=== PATIENT | female | born 1995 | race African-American/Black ===

== ENCOUNTER 2016-10-25 16:09 | Emergency (ER) | payer OTHER ==
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
[~2016-10-25 16:09] MED LIST: NO MEDICATIONS; ZOFRAN PO; ZOVIRAX800 MG PO
== END 2016-10-25 18:53 | disposition home or self-care (01) ==
LOC: SED 16:09
DX: S16.1XXA Strain of muscle, fascia and tendon at neck level, initial encounter (principal); S29.012A Strain of muscle and tendon of back wall of thorax, initial encounter; V49.40XA Driver injured in collision with unspecified motor vehicles in traffic accident, initial encounter; Y92.488 Other paved roadways as the place of occurrence of the external cause
CPT/HCPCS: 72040; 72072; 99284